=== PATIENT | female | born 1980 | race Caucasian/White ===

== ENCOUNTER 2018-09-14 05:57 | Day surgery (SDC) | payer SELFPAY ==
[2018-09-09 14:08] VITALS: BP 102/70; PULSE 59; RESP 16; TEMP 36.6; O2SAT 98; BMI 26.2
[2018-09-09 16:43] LABS: Hematocrit 35.7 % (37-47); Hemoglobin 11.4 g/dl (12.0-15.0); Mean Corp Hgb Conc 31.9 g/gl (32-36); Mean Corpuscular Hgb 30.2 pg (27.0-32.0); Mean Corpuscular Volume 94.7 fL (81-99); Mean Platelet Vol. 10.5 fl (6.2-12.0); Platelet Count 262 K/mm3 (150-450); RBC Distribution Width CV 14.1 % (11.6-14.6); RBC Distribution Width SD 48.4 fl (35.1-43.9); Red Blood Count 3.77 M/mm3 (4.2-5.4); White Blood Count 5.9 K/mm3 (4.4-11.0)
[2018-09-09 17:01] LABS: International Normalized Ratio 1.1; Prothrombin Time (Protime)PT. 14.5 SECONDS (11.7-14.9)
[2018-09-09 17:02] LABS: Partial Thromboplast Time 37.6 Seconds (24.1-36.2)
[2018-09-09 17:11] LABS: Scan Indicated on CBC? Y/N NO
[2018-09-09 17:13] LABS: Pregnancy, Serum, hCG Quali. NEGATIVE Negative (0-9 Nonpreg)
--- NOTE | 2018-09-13 14:31 | HP.PCM_ITS ---
History and Physical Date of Admission: 09/14/18 Surgical History and Physical Leydi Dunlap, a 38 year old female 8 1 2 0 9, presents for L/S BTO with Filsche clips and distal bilateral salpingectomy on September 14, 2018 at 7:30. -- Desires Permanent Sterilization -- Leydi presents here today as referral from Dr. Muhammad for a Tubal. 38 y.o. G 11 P 9 non-smoker with no menses since on 05-28-18 with a sudden abruption at 36 wks gestation and delivered a healthy female at that time. Currently breast feeding and using nothing for control. She has considered this form of control for quite some time. MEDICATIONS HISTORY: ALLERGIES: No Known Allergies Infections - Chicken pox Illnesses - no serious past illnesses Accidents - None Hospitalizations - see surgery Review of Systems: GENERAL - Denies fever, or chills SKIN - Denies skin changes EYES - Denies visual changes EARS - Denies difficulty hearing NOSE - Denies nasal congestion or bleeding MOUTH - Denies sore throat or difficulty swallowing NECK - Denies pain or swelling RESPIRATORY - Denies shortness of breath or wheezing CARDIOVASCULAR - Denies palpitations or chest pain GASTROINTESTINAL - Denies nausea, vomiting, diarrhea, constipation GENITOURINARY - Denies dysuria, frequency of urination, incontinence of urine MUSCULOSKELETAL - Denies joint or muscle pain NEUROLOGICAL - Denies localized numbness or weakness PSYCHIATRIC - Denies depression or anxiety ENDOCRINE - Denies heat or cold intolerance, weight loss or gain HEMATO-IMMUNOLOGIC - Denies excesive bleeding with cuts SOCIAL HISTORY: Alcohol Use - None Smoking - Never Diet - no special diet Lifestyle - moderate stress lifestyle and Exercise - active work 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 T and A, 1990 ; - PHYSICAL EXAM BP- 110/70 Sitting, Right arm, regular cuff Weight- 143.31876 lbs Height- 62 inch BMI:26.21 CONSTITUTIONAL - NAD, well nourished, and well developed SKIN - No rash, lesions, or ulcers HEENT - Normocephalic, PERRLA, EOMI NECK - No nodes, no nuchal rigidity and thyroid normal size and texture LYMPH NODES - Palpation of lymph nodes in neck and groins within normal limits LUNGS - CTA x2 without wheezes, crackles or rales CARDIAC - Regular rate and rhythm without rubs, murmurs, or gallops ABDOMEN - Without hepatosplenomegaly, distention, masses, rebound, or guarding; normal bowel sounds; no hernias EXTREMITIES - No edema or calf tenderness NEUROLOGICAL - Cranial nerves II-XII grossly intact PSYCHIATRIC - A and O to time, place, person, mood and affect ASSESSMENT/PLAN: 1. Sterilization Status Desires permanent sterilization. Discussed LST with filsche clips and distal salpingectomy vs ESSURE vs Mirena IUD and she desires the tubal in the OR. Discussed RBAs and all questions answered.
[2018-09-14 06:21] VITALS: BP 109/68; PULSE 56; RESP 16; TEMP 36.5; O2SAT 100; BMI 26.2
[2018-09-14 06:26] LABS: Internal QC Validated? YES +Cl - CLEAR BKGD; Pregnancy, Urine Negative Negative
--- NOTE | 2018-09-14 07:30 | FALS_PTH ---
PATIENT: TERENCE SANCHEZ [place] [facility] [place][id number] AGE/SX: 38/F ROOM: RE09/14/[address]: Dr. Umberto Brito MD : 1980 BED: DIS: 09/14/2018 SPEC #: [id number] RECD: 09/14/18 09:39 STATUS: JEAN CLAUDE PARKTamiko #: [id number] TRESSA: 09/14/18 07:[address]: Umberto Brito DEPT: SURGICAL PATHOLOGY RECD BY: Denise Santos ENTERED: 09/14/18 11:17 SP TYPE: FALL TUBES OTHR DR: Dr. Umberto Marroquin MD Tissues: Fallopian tube Procedures: Surgery Specimen Level II HEADER OPERATION: Laparoscopic, bilateral tubal occlusion, Filshie clips/partial PRE-OP DIAGNOSIS: Desires permanent sterilization TISSUE SUBMITTED: Bilateral tubes MICROSCOPIC DIAGNOSIS Bilateral fallopian tubes: Bilateral fallopian tubes including fimbrial ends, no pathologic diagnosis. SJ:dami 09/15/18 MICROSCOPIC DESCRIPTION Slides are reviewed. GROSS DESCRIPTION Received is one container labeled with the patient's name and designated bilateral fallopian tubes. The specimen consists of two fallopian tubes with an average length of 7.5 cm and has an average diameter of 0.6 cm. Both fallopian tubes have normal fimbriated ends. The fimbriated ends have normal villous appearance. No mass lesions are identified. Sleeve Turner sections from both fallopian tubes are submitted in two cassettes. / AM:dami 09/14/18 TC:4 CPT: 61807 x2
--- NOTE | 2018-09-14 07:37 | PCM.OPRPT ---
Report of Operation Date of Procedure: 09/14/18 Pre-Operative Diagnosis: Desires Permanent Sterilization Post-Operative Diagnosis: Desires Permanent Sterilization Surgery/Procedure Performed:: Laparoscopic Bilateral Tubal Occlusion with Filshie Clips and Bilateral Distal Salpingectomy Description of Surgical Findings:: 8 cm uterus with normal-appearing fallopian tubes and ovaries. Type of Anesthesia:: General - endotracheal tube Anesthesiologist: Chapis Anderson Specimen's removed: Bilateral distal fallopian tubes Estimated Blood Loss (mL): Minimal Fluids Replaced: Crystalloid Description of Procedure: Surgeon: Umberto Brito MD, FACOG Indications: This is a 38 year old patient who has the above diagnosis. She has considered sterilization for quite some time. She is aware of the permanent nature of the procedure, the failure rate of 1-2%, and the availability of other nonpermanent control options. All questions were answered and we consider the patient well-informed. Procedure: The patient was taken to the operating room where after induction of general anesthesia, she was placed in the dorsolithotomy position and prepped and draped in the usual sterile fashion. The bladder was drained of approximately 50 cc of clear yellow urine with a catheter. Anterior cervix was grasped with the tenaculum. Conn cannula was placed and attention was turned toward the laparoscopic portion of the procedure. Approximately 15 cc of half percent ropivacaine was injected subumbilically suprapubically and midway between. A 5 mm bladeless trocar was placed subumbilically and intraperitoneal placement confirmed. After CO2 insufflation was complete, a 5 mm bladeless trocar was introduced suprapubically. The above findings were noted. An mini alligator grasper was then placed midway between these 2 ports for tubal manipulation. Each fallopian tube was identified to its fimbriated end and an Enseal device was used to divide the mesosalpinx leaving approximately 1-2 cm stump of fallopian tube on each side. Filshie clips were placed on the stump of each fallopian tube. The peritoneal cavity and upper abdomen were examined and noted to be normal. Photographs were taken. Laparoscopic instruments with as much CO2 gas as possible were removed and incisions were closed with interrupted 4-0 Monocryl suture. Steri-Strips placed across the incision. Patient tolerated procedure well was taken to recovery room in satisfactory condition sponge instrument and needle counts were all reportedly correct. Cefotan 2 g IV was given prior to beginning the operative procedure. Estimated blood loss for the case was minimal. Specimen to pathology was bilateral distal fallopian tubes. Grafts/Implants Used: None - Complications None - Admit VTE Documentation VTE Present on Admission: Yes VTE Mechan Device Prophylaxis: SCD's VTE Pharm Prophylaxis ordered?: No Reason prophylaxis not ordered:: Treatment Not Indicated
[2018-09-14] MEDS: Ropivacaine 0.5% 30 ML Vial (07:50)
--- NOTE | 2018-09-14 08:24 | DCINST_ITS ---
Discharge Diet: No Restrictions - Increase fluid intake for the next 48 hours. Discharge Activity: Return to Normal Activity, May not drive while taking narcotic pain medications., May Shower, May Take a Tub Bath Additional Activity Instructions:: Ambulate often the next week after surgery. Nothing in the vagina for 5 days. Call your doctor if your incision/area has: Continuous Slow Oozing, Sudden Increased Bleeding, Increased Pain/ Swelling, Increased Redness, Foul Smelling Discharge Call your doctor if you observe: Fever of 101 or Higher, Inability to urinate, Inability to have a bowel movement, Using more than one pad per hour Allergies/Adverse Reactions: Allergies No Known Allergies Allergy (Verified 09/09/18 14:07) Medications to take at Discharge Hydrocodone Bitart/Apap 5-325 [[place] 5MG-325MG] 1 tab PO Q6H PRN PRN 7 Days #10 tab 09/14/18 The following prescriptions were given: Hydrocodone Bitart/Apap 5-325 [[place] 5MG-325MG] 1 tab PO Q6H PRN PRN 7 Days #10 tab PRN Reason: Severe Pain (-07/08) Primary Care Physician: Umberto Marroquin [Primary Care Provider] - Test Results: Test results from this visit will be discussed in further detail at your follow- up appointment, if applicable. Please Follow Up With: Umberto Brito MD - [phone] When: 2-3 weeks
[2018-09-14 08:27] VITALS: BP 107/62; BP 109/68; PULSE 51; RESP 18; TEMP 36.3; O2SAT 98
[2018-09-14 08:33] VITALS: BP 109/68; BP 116/67; PULSE 51; RESP 16; O2SAT 97
[2018-09-14 08:45] VITALS: BP 109/68; BP 117/67; PULSE 48; RESP 16; O2SAT 100
[2018-09-14 08:55] VITALS: BP 108/69; BP 109/68; PULSE 48; RESP 16; TEMP 36.3; O2SAT 100
[2018-09-14] MEDS: HYDROcodone Bitartrate/Apap 5/325 Tablet PO (09:38)
[2018-09-14 10:30] VITALS: BP 105/64; BP 109/68; PULSE 58; RESP 16; TEMP 36.9; O2SAT 99
--- OUTSIDE RECORDS SUMMARY | 2018-12-16 16:18 | XMS RPT_ITS ---
:1980 Author Organization [facility] Care Team Providers Name Role Phone MICHAELLE MCMAHON CNM Admitting Unavailable MICHAELLE MCMAHON CNM Attending Unavailable MICHAELLE MCMAHON CNM Primary Care Unavailable Umberto Brito Attending Unavailable Umberto Brito Referring Unavailable Umberto Marroquin Primary Care Unavailable PROBLEMS PROBLEMS DATE TYPE CONDITION / CODE ATTENDING STATUS SOURCE 09/14/2018 Unknown G89.18 - Other acute Umberto Brito Active [place] postprocedural pain [facility] / G89.18(ICD-10) Hospital Repository PROCEDURES PROCEDURES No Procedure Records FoundRESULTS RESULTS DISCHARGE INSTRUCTION Observed: 09/14/2018 Status: F Source: [place] 8:25 AM [facility] REPOSITORY [facility] Medical Records Department [address] [place] [address] Instructions for Home/Discharge Instructions 09/14/18 0824 MR#: [id number] Acct: [id number] Name: LEYDI DUNLAP Rep #: [id number] : 1980 38 From: Umberto Brito MD PCP: Umberto Marroquin MD Status: REG [facility] [place] Discharge Diet: No Restrictions - Increase fluid intake for the next 48 hours. Discharge Activity: Return to Normal Activity, May not drive while taking narcotic pain medications., May Shower, May Take a Tub Bath Additional Activity Instructions:: Ambulate often the next week after surgery. Nothing in the vagina for 5 days. Call your doctor if your incision/area has: Continuous Slow Oozing, Sudden Increased Bleeding, Increased Pain/ Swelling, Increased Redness, Foul Smelling Discharge Call your doctor if you observe: Fever of 101 or Higher, Inability to urinate, Inability to have a bowel movement, Using more than one pad per hour Allergies/Adverse Reactions: Allergies No Known Allergies Allergy (Verified 09/09/18 14:07) Medications to take at Discharge Hydrocodone Bitart/Apap 5-325 [[place] 5MG-325MG] 1 tab PO Q6H PRN PRN 7 Days #10 tab 09/14/18 The following prescriptions were given: Hydrocodone Bitart/Apap 5-325 [[place] 5MG-325MG] 1 tab PO Q6H PRN PRN 7 Days #10 tab PRN Reason: Severe Pain (-07/08) Primary Care Physician: Umberto Marroquin [Primary Care Provider] - Test Results: Test results from this visit will be discussed in further detail at your follow-up appointment, if applicable. Please Follow Up With: Umberto Brito MD - [phone] When: 2-3 weeks 09/14/18 0824 <Electronically signed by Umberto Brito MD> Date Umberto Brito MD CC: Umberto Marroquin MD OPERATIVE REPORT Observed: 09/14/2018 Status: F Source: [place] 8:[address] [facility] Medical Records Department [address] [place] [address] Operative Report 09/14/18 0737 MR#: [id number] Acct: [id number] Name: LEYDI DUNLAP Rep #: [id number] : 1980 38 From: Umberto Brito MD PCP: Umberto Marroquin MD Status: [facility] Y Location: [place] [address] Report of Operation Date of Procedure: 09/14/18 Pre-Operative Diagnosis: Desires Permanent Sterilization Post-Operative Diagnosis: Desires Permanent Sterilization Surgery/Procedure Performed:: Laparoscopic Bilateral Tubal Occlusion with Filshie Clips and Bilateral Distal Salpingectomy Description of Surgical Findings:: 8 cm uterus with normal-appearing fallopian tubes and ovaries. Type of Anesthesia:: General - endotracheal tube Anesthesiologist: Chapis Anderson Specimen's removed: Bilateral distal fallopian tubes Estimated Blood Loss (mL): Minimal Fluids Replaced: Crystalloid Description of Procedure: Surgeon: Umberto Brito MD, FACOG Indications: This is a 38 year old patient who has the above diagnosis. She has considered sterilization for quite some time. She is aware of the permanent nature of the procedure, the failure rate of 1-2%, and the availability of other nonpermanent control options. All questions were answered and we consider the patient well-informed. Procedure: The patient was taken to the operating room where after induction of general anesthesia, she was placed in the dorsolithotomy position and prepped and draped in the usual sterile fashion. The bladder was drained of approximately 50 cc of clear yellow urine with a catheter. Anterior cervix was grasped with the tenaculum. Conn cannula was placed and attention was turned toward the laparoscopic portion of the procedure. Approximately 15 cc of half percent ropivacaine was injected subumbilically suprapubically and midway between. A 5 mm bladeless trocar was placed subumbilically and intraperitoneal placement confirmed. After CO2 insufflation was complete, a 5 mm bladeless trocar was introduced suprapubically. The above findings were noted. An mini alligator grasper was then placed midway between these 2 ports for tubal manipulation. Each fallopian tube was identified to its fimbriated end and an Enseal device was used to divide the mesosalpinx leaving approximately 1-2 cm stump of fallopian tube on each side. Filshie clips were placed on the stump of each fallopian tube. The peritoneal cavity and upper abdomen were examined and noted to be normal. Photographs were taken. Laparoscopic instruments with as much CO2 gas as possible were removed and incisions were closed with interrupted 4-0 Monocryl suture. Steri-Strips placed across the incision. Patient tolerated procedure well was taken to recovery room in satisfactory condition sponge instrument and needle counts were all reportedly correct. Cefotan 2 g IV was given prior to beginning the operative procedure. Estimated blood loss for the case was minimal. Specimen to pathology was bilateral distal fallopian tubes. Grafts/Implants Used: None - Complications None - Admit VTE Documentation VTE Present on Admission: Yes VTE Mechan Device Prophylaxis: SCD's VTE Pharm Prophylaxis ordered?: No Reason prophylaxis not ordered:: Treatment Not Indicated 09/14/18 0824 <Electronically signed by Umberto Brito MD> Date Umberto Brito MD CC: Umberto Marroquin MD; Umberto Brito MD Signed FALLOPIAN TUBES/STERILIZATION Observed: 09/14/2018 Status: F Source: [place] 7:30 AM [facility] REPOSITORY Patient: LEYDI DUNLAP : 1980 (38/F) Acct Num: [id number] Phys: Daryl ANDERSON,Umberto Unit Num: [id number] Loc: [facility] [place] Specimen: [id number] Received: 09/14/18938 Spec Type: FALL TUBES TISSUES 1 TISSUES: Fallopian tube GROSS DESCRIPTION Received is one container labeled with the patient's name and designated bilateral fallopian tubes. The specimen consists of two fallopian tubes with an average length of 7.5 cm and has an average diameter of 0.6 cm. Both fallopian tubes have normal fimbriated ends. The fimbriated ends have normal villous appearance. No mass lesions are identified. Claim Adjuster sections from both fallopian tubes are submitted in two cassettes. / AM:dami 09/14/18 TC:4 CPT: 99170 x2 HEADER OPERATION: Laparoscopic, bilateral tubal occlusion, Filshie clips/partial PRE-OP DIAGNOSIS: Desires permanent sterilization TISSUE SUBMITTED: Bilateral tubes MICROSCOPIC DESCRIPTION Slides are reviewed. MICROSCOPIC DIAGNOSIS Bilateral fallopian tubes: Bilateral fallopian tubes including fimbrial ends, no pathologic diagnosis. SJ:dami 09/15/18 Signed Boy Lopez MD 09/15/18 <signature on file> Performed By: #### PFALS #### [facility] [address] [place], [address] ,URINE Collected: 09/14/2018 Status: F Source: [place] 6:11 AM [facility] REPOSITORY TYPE CODE TESTS RESULT OUT OF REFERENCE UNITS RANGE LAB L400.8000 Negative Normal HCGUQUAL Negative Result Comment: Very dilute urine specimens, as indicated by a low specific gravity, may not contain telephone services sales representative levels of hCG. If is still suspected, a first morning urine specimen should be collected 48 hours later and tested. Performed By: #### L400.7600 #### [facility] [address] [place], [address] HISTORY AND PHYSICAL Observed: 09/13/2018 Status: F Source: [place] EXAM 2:31 PM [facility] REPOSITORY [facility] Medical Records Department [address] [place] [address] History and Physical 09/13/18 1430 MR#: [id number] Acct: [id number] Name: LEYDI DUNLAP Rep #: [id number] : 1980 38 From: Umberto Brito MD PCP: Umberto Marroquin MD Status: PRE [facility] [place] Y Location: [facility] [place] History and Physical Date of Admission: 09/14/18 Surgical History and Physical Leydi Dunlap, a 38 year old female 8 1 2 0 9, presents for L/S BTO with Filsche clips and distal bilateral salpingectomy on September 14, 2018 at 7:30. -- Desires Permanent Sterilization -- Leydi presents here today as referral from Dr. Muhammad for a Tubal. 38 y.o. G 11 P 9 non-smoker with no menses since on 05-28-18 with a sudden abruption at 36 wks gestation and delivered a healthy female at that time. Currently breast feeding and using nothing for control. She has considered this form of control for quite some time. MEDICATIONS HISTORY: ALLERGIES: No Known Allergies Infections - Chicken pox Illnesses - no serious past illnesses Accidents - None Hospitalizations - see surgery Review of Systems: GENERAL - Denies fever, or chills SKIN - Denies skin changes EYES - Denies visual changes EARS - Denies difficulty hearing NOSE - Denies nasal congestion or bleeding MOUTH - Denies sore throat or difficulty swallowing NECK - Denies pain or swelling RESPIRATORY - Denies shortness of breath or wheezing CARDIOVASCULAR - Denies palpitations or chest pain GASTROINTESTINAL - Denies nausea, vomiting, diarrhea, constipation GENITOURINARY - Denies dysuria, frequency of urination, incontinence of urine MUSCULOSKELETAL - Denies joint or muscle pain NEUROLOGICAL - Denies localized numbness or weakness PSYCHIATRIC - Denies depression or anxiety ENDOCRINE - Denies heat or cold intolerance, weight loss or gain HEMATO-IMMUNOLOGIC - Denies excesive bleeding with cuts SOCIAL HISTORY: Alcohol Use - None Smoking - Never Diet - no special diet Lifestyle - moderate stress lifestyle and Exercise - active work 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 T and A, 1990 ; - PHYSICAL EXAM BP- 110/70 Sitting, Right arm, regular cuff Weight- 143.51493 lbs Height- 62 inch BMI:26.21 CONSTITUTIONAL - NAD, well nourished, and well developed SKIN - No rash, lesions, or ulcers HEENT - Normocephalic, PERRLA, EOMI NECK - No nodes, no nuchal rigidity and thyroid normal size and texture LYMPH NODES - Palpation of lymph nodes in neck and groins within normal limits LUNGS - CTA x2 without wheezes, crackles or rales CARDIAC - Regular rate and rhythm without rubs, murmurs, or gallops ABDOMEN - Without hepatosplenomegaly, distention, masses, rebound, or guarding; normal bowel sounds; no hernias EXTREMITIES - No edema or calf tenderness NEUROLOGICAL - Cranial nerves II-XII grossly intact PSYCHIATRIC - A and O to time, place, person, mood and affect ASSESSMENT/PLAN: 1. Sterilization Status Desires permanent sterilization. Discussed LST with filsche clips and distal salpingectomy vs ESSURE vs Mirena IUD and she desires the tubal in the OR. Discussed RBAs and all questions answered. 09/13/18 1431 <Electronically signed by Umberto Brito MD> Date Umberto Brito MD Cosigner Signature: Date (if applicable) CC: Umberto Marroquin MD; Umberto Brito MD Signed ANTIGEN E GAMMACLONE Collected: 09/09/2018 Status: F Source: [place] 2:30 PM [facility] REPOSITORY TYPE CODE TESTS RESULT OUT OF REFERENCE UNITS RANGE LAB B102.5450 E ANTIGEN ID ANTIGEN: NEGATIVE Performed By: #### B102.1200 #### [facility] [address] [place], [place], [id number] CBC-COMPLETE BLOOD CNT Collected: 09/09/2018 Status: F Source: [place] NO DIFF 2:26 PM [facility] REPOSITORY TYPE CODE TESTS RESULT OUT OF RANGE REFERENCE UNITS LAB L100.1000 4.4-11.0 K/mm3 Normal WBC 5.9 LAB L100.1200 4.2-5.4 M/mm3 Low RBC 3.77 LAB L100.1300 12.0-15.0 g/dl Low HGB 11.4 LAB L100.1400 37-47 % Low HCT 35.7 LAB L100.1500 81-99 fL Normal MCV 94.7 LAB L100.1600 27.0-32.0 pg Normal MCH 30.2 LAB L100.1700 32-36 g/gl Low MCHC 31.9 LAB L100.1810 11.6-14.6 % Normal RDW CV 14.1 LAB L100.1820 35.1-43.9 fl High RDW SD 48.4 LAB L100.1900 150-450 K/mm3 Normal PLT 262 LAB L100.2000 6.2-12.0 fl Normal MPV 10.5 Performed By: #### L100.0500 #### [facility] [address] [place], [place], [id number] PROTHROMBIN TIME W/INR Collected: 09/09/2018 Status: F Source: [place] 2:26 PM [facility] REPOSITORY TYPE CODE TESTS RESULT OUT OF RANGE REFERENCE UNITS LAB L300.4150 11.7-14.9 SECONDS Normal PROTIME 14.5 LAB L300.4200 Normal INR 1.1 Performed By: #### L300.3900, L300.4310 #### [facility] [address] [place], [address] PARTIAL THROMBOPLAST Collected: 09/09/2018 Status: F Source: [place] TIME 2:26 PM [facility] REPOSITORY TYPE CODE TESTS RESULT OUT OF REFERENCE UNITS RANGE LAB L300.4310 24.1-36.2 Seconds High PTT 37.6 Performed By: #### L300.3900, L300.4310 #### [facility] [address] [place], [address] ,SERUM,HCG QUALI. Collected: Status: C Source: [place] 09/09/2018 2:26 PM [facility] REPOSITORY TYPE CODE TESTS RESULT OUT OF REFERENCE UNITS RANGE LAB L700.6700 =>Qualitative mIU/mL Normal HCG Qual < 1 triggr LAB L700.7000 0-9 Nonpreg Negative Normal HCGSQUAL NEGATIVE Performed By: #### L700.6800 #### [facility] [address] [place], [address] TYPE AND SCREEN Collected: 09/09/2018 Status: F Source: [place] 2:26 PM [facility] REPOSITORY Order Comment: Surgery Date: 09/14/18 Hx of Preganancy in last 3 Months No Ever experience any problems with transfusion(s)? N Hx of Transfusion in last 3 Months N Reason for Type AND Screen/Red Cells: SURGERY SURGICAL PROCEDURE: 79022 TYPE CODE TESTS RESULT OUT OF RANGE REFERENCE UNITS LAB B10.0800 A Normal BLOOD TYPE GEL POSITIVE LAB B100.4000 High Antibody POSITIVE Screen Performed By: #### B101.7475 #### [facility] [address] [place], [address] ANTIBODY PANEL ID Collected: 09/09/2018 Status: F Source: [place] 2:26 PM [facility] REPOSITORY Order Comment: Surgery Date: 09/14/18 Hx of Preganancy in last 3 Months No Ever experience any problems with transfusion(s)? N Hx of Transfusion in last 3 Months N Reason for Type AND Screen/Red Cells: SURGERY SURGICAL PROCEDURE: 97505 TYPE CODE TESTS RESULT OUT OF REFERENCE UNITS RANGE LAB B101.1999 ANTIBODY PANEL ANTI-E Performed By: #### B101.1999 #### [facility] [address] [place], [address] ANTIBODY PANEL ID Collected: 09/09/2018 Status: F Source: [place] 2:26 PM [facility] REPOSITORY Order Comment: Surgery Date: 09/14/18 Hx of Preganancy in last 3 Months No Ever experience any problems with transfusion(s)? N Hx of Transfusion in last 3 Months N CMV NEG?* N Give When? Type AND Hold Irradiated? N Leukodepleted? Y Reason for Type AND Screen/Red Cells: SURGERY Surgery Date: 09/14/18 Time: 0800 SURGICAL PROCEDURE: 46366 Type of Surgery: LAPAROSCOPY TYPE CODE TESTS RESULT OUT OF REFERENCE UNITS RANGE LAB B101.1999 ANTIBODY PANEL ANTI-E Performed By: #### B101.1999, B101.7450 #### [facility] [address] [place], [address] TYPE AND SCREEN Collected: 09/09/2018 Status: F Source: [place] 2:26 PM [facility] REPOSITORY Order Comment: Surgery Date: 09/14/18 Hx of Preganancy in last 3 Months No Ever experience any problems with transfusion(s)? N Hx of Transfusion in last 3 Months N CMV NEG?* N Give When? Type AND Hold Irradiated? N Leukodepleted? Y Reason for Type AND Screen/Red Cells: SURGERY Surgery Date: 09/14/18 Time: 0800 SURGICAL PROCEDURE: 04003 Type of Surgery: LAPAROSCOPY TYPE CODE TESTS RESULT OUT OF RANGE REFERENCE UNITS LAB B10.0800 A Normal BLOOD TYPE GEL POSITIVE LAB B100.4000 High Antibody POSITIVE Screen Performed By: #### B101.1999, B101.7450 #### [facility] [address] [place], [address] CBC Collected: 05/29/2018 Status: F Source: [facility] [place] 6:11 AM [facility] REPOSITORY TYPE CODE TESTS RESULT OUT OF RANGE REFERENCE UNITS LAB CBC(LOINC) CBC Result Comment: CBC-COMPLETE BLOOD COUNT LAB WBC(LOINC) 4.5 - 10.8 x 10EE3/UL WBC 8.9 LAB RBC(LOINC) 4.10 - x 10EE6/UL 5.30 RBC Low 3.78 LAB HEMOGLOBIN(LOINC 12.0 - g/dl ) 16.0 Low HEMOGLOBIN 11.2 LAB HEMATOCRIT(LOINC 34.0 - % ) 46.0 Low HEMATOCRIT 32.4 LAB MCV(LOINC) 80 - 99 fl MCV 86 LAB MCH(LOINC) 27 - 33 pg MCH 30 LAB MCHC(LOINC) 32 - 36 X10 3 MCHC 35 LAB RDW/CV(LOINC) 12.0 - % 15.6 RDW/CV High 17.9 LAB PLATELET(LOINC) 150 - 450 x10EE3/UL PLATELET Low 124 LAB MPV(LOINC) 6.6 - 10.5 fl MPV 9.9 Result Comment: AUTOMATED DIFFERENTIAL LAB NEUT %(LOINC) 46.0 - 76.0 % NEUT % 65.1 LAB LYMPH %(LOINC) 20.0 - 45.0 % LYMPH % 22.2 LAB MONOS %(LOINC) 0.0 - 10.0 % MONOS % High 10.8 LAB EO %(LOINC) 0.0 - 7.0 % EO % 1.0 LAB BASO %(LOINC) 0.0 - 2.0 % BASO % 0.9 LAB Lymph #(LOINC) 0.80 - 2.80 x10EE3/U L Lymph # 2.00 LAB Neut #(LOINC) 1.50 - 7.10 x10EE3/U L Neut # 5.80 LAB [place] #(LOINC) 0.20 - 1.00 x10EE3/U L [place] # 1.00 LAB EO #(LOINC) 0.00 - 0.50 x10EE3/U L EO # 0.10 LAB Baso #(LOINC) 0.00 - 0.10 x10EE3/U L Baso # 0.10 LAB MANUAL DIFF(LOINC) MANUAL DIFF N/A LAB MORPHOLOGY(LOINC ) MORPHOLOGY N/A Result Comment: {CD] Performed By: #### [id number] #### [facility],[address] [place] [address] CBC Collected: 05/29/2018 Status: F Source: [place] [place] 12:47 AM [facility] REPOSITORY TYPE CODE TESTS RESULT OUT OF RANGE REFERENCE UNITS LAB CBC(LOINC) CBC Result Comment: CBC-COMPLETE BLOOD COUNT LAB WBC(LOINC) 4.5 - 10.8 x 10EE3/UL WBC 10.0 LAB RBC(LOINC) 4.10 - x 10EE6/UL 5.30 RBC Low 3.84 LAB HEMOGLOBIN(LOINC 12.0 - g/dl ) 16.0 Low HEMOGLOBIN 11.4 LAB HEMATOCRIT(LOINC 34.0 - % ) 46.0 Low HEMATOCRIT 32.9 LAB MCV(LOINC) 80 - 99 fl MCV 86 LAB MCH(LOINC) 27 - 33 pg MCH 30 LAB MCHC(LOINC) 32 - 36 X10 3 MCHC 35 LAB RDW/CV(LOINC) 12.0 - % 15.6 RDW/CV High 17.3 LAB PLATELET(LOINC) 150 - 450 x10EE3/UL PLATELET Low 118 LAB MPV(LOINC) 6.6 - 10.5 fl MPV 10.2 Result Comment: AUTOMATED DIFFERENTIAL LAB NEUT %(LOINC) 46.0 - 76.0 % NEUT % 68.2 LAB LYMPH %(LOINC) 20.0 - 45.0 % LYMPH % 22.6 LAB MONOS %(LOINC) 0.0 - 10.0 % MONOS % 8.5 LAB EO %(LOINC) 0.0 - 7.0 % EO % 0.3 LAB BASO %(LOINC) 0.0 - 2.0 % BASO % 0.4 LAB Lymph #(LOINC) 0.80 - 2.80 x10EE3/U L Lymph # 2.30 LAB Neut #(LOINC) 1.50 - 7.10 x10EE3/U L Neut # 6.80 LAB [place] #(LOINC) 0.20 - 1.00 x10EE3/U L [place] # 0.90 LAB EO #(LOINC) 0.00 - 0.50 x10EE3/U L EO # 0.00 LAB Baso #(LOINC) 0.00 - 0.10 x10EE3/U L Baso # 0.00 LAB MANUAL DIFF(LOINC) MANUAL DIFF N/A LAB MORPHOLOGY(LOINC ) MORPHOLOGY N/A Result Comment: {CD] Performed By: #### [id number] #### [place] [id number] FIBRINOGEN Collected: 05/28/2018 Status: F Source: [facility] 5:55 PM [facility] REPOSITORY TYPE CODE TESTS RESULT OUT OF REFERENCE UNITS RANGE LAB FIBRINOGEN 200 - 661 mg/dl (LOINC) FIBRINOGEN 572 Result Comment: PLEASE NOTE - FIBRINOGEN AT [place] IS A CALCULATED VALUE. Values measured using the calculated fibrinogen method are biased 100mg/dl higher than values measured using the Clauss method. Performed By: #### [id number] #### [place] [address] PROTHROMBIN TIME AND Collected: 05/28/2018 Status: F Source: [facility] INR 5:55 PM [facility] REPOSITORY TYPE CODE TESTS RESULT OUT OF REFERENCE UNITS RANGE LAB PROTHROMBIN TIME AND INR(LOINC) PROTHROMBIN TIME AND INR Result Comment: PROTHROMBIN TIME AND INR LAB PT-COUMADIN(LOINC) sec PT-COUMADIN 11.4 LAB INR(LOINC) 0.8 - 1.2 INR 1.0 Result Comment: THE HEMOSIL THROMBOPLASTIN REAGENT USED IN THE PROTHROMBIN TIME TEST INTERACTS WITH THE DRUG CUBICIN (DAPTOMYCIN) AND WILL RESULT IN FALSELY ELEVATED PT / INR RESULTS INR INTERPRETATION INR INDICATION PREVENTION AND TREATMENT OF THROMBOEMBOLISM ASSOCIATED WITH: 2.0 - 3.0 ATRIAL FIBRILLATION, BIOPROSTHETIC HEART VALVES, PULMONARY EMBOLISM, VENOUS THROMBOSIS, SYSTEMIC EMBOLISM POST MYOCARDIAL INFARCTION 2.5 - 3.5 MECHANICAL HEART VALVES Performed By: #### [id number] #### [place] [address] APTT Collected: 05/28/2018 Status: F Source: [facility] 5:55 PM [facility] REPOSITORY TYPE CODE TESTS RESULT OUT OF RANGE REFERENCE UNITS LAB PTT(LOINC) 21.6 - 35.4 sec PTT 25.8 Performed By: #### [id number] #### [facility],[address] [place] [address] CBC Collected: 05/28/2018 Status: F [facility] PM [facility] REPOSITORY TYPE CODE TESTS RESULT OUT OF RANGE REFERENCE UNITS LAB CBC(LOINC) CBC Result Comment: CBC-COMPLETE BLOOD COUNT LAB WBC(LOINC) 4.5 - 10.8 x 10EE3/UL WBC High 13.3 LAB RBC(LOINC) 4.10 - x 10EE6/UL 5.30 RBC Low 3.56 LAB HEMOGLOBIN(LOINC 12.0 - g/dl ) 16.0 Low HEMOGLOBIN 10.4 LAB HEMATOCRIT(LOINC 34.0 - % ) 46.0 Low HEMATOCRIT 30.6 LAB MCV(LOINC) 80 - 99 fl MCV 86 LAB MCH(LOINC) 27 - 33 pg MCH 29 LAB MCHC(LOINC) 32 - 36 X10 3 MCHC 34 LAB RDW/CV(LOINC) 12.0 - % 15.6 RDW/CV High 17.5 LAB PLATELET(LOINC) 150 - 450 x10EE3/UL PLATELET 158 LAB MPV(LOINC) 6.6 - 10.5 fl MPV High 10.7 Result Comment: AUTOMATED DIFFERENTIAL LAB NEUT %(LOINC) 46.0 - 76.0 % NEUT % High 76.2 LAB LYMPH %(LOINC) 20.0 - 45.0 % Low LYMPH % 15.4 LAB MONOS %(LOINC) 0.0 - 10.0 % MONOS % 7.4 LAB EO %(LOINC) 0.0 - 7.0 % EO % 0.6 LAB BASO %(LOINC) 0.0 - 2.0 % BASO % 0.4 LAB Lymph #(LOINC) 0.80 - 2.80 x10EE3/U L Lymph # 2.00 LAB Neut #(LOINC) 1.50 - 7.10 x10EE3/U L Neut # High 10.10 LAB [place] #(LOINC) 0.20 - 1.00 x10EE3/U L [place] # 1.00 LAB EO #(LOINC) 0.00 - 0.50 x10EE3/U L EO # 0.10 LAB Baso #(LOINC) 0.00 - 0.10 x10EE3/U L Baso # 0.00 LAB MANUAL DIFF(LOINC) MANUAL DIFF N/A LAB MORPHOLOGY(LOINC ) MORPHOLOGY N/A Result Comment: {CD] Performed By: #### [id number] #### [facility],[address] [place] [address] BB TYPE & SCREEN Collected: 05/28/2018 Status: F Source: [facility] 3:33 PM [facility] REPOSITORY TYPE CODE TESTS RESULT OUT OF REFERENCE UNITS RANGE LAB BB TYPE & SCREEN(LOIN C) BB TYPE & SCREEN Result Comment: TYPE, Rh, AND SCREEN LAB ABO(LOINC) ABO A LAB Rh(LOINC) Rh POS LAB ANTIBODY SCR(LOINC) ANTIBODY negative SCR Performed By: #### [id number] #### [facility],[address] [place] [address] BB CROSSMATCH 1ST UNIT Collected: 05/28/2018 Status: F Source: [facility] 3:30 PM [facility] REPOSITORY TYPE CODE TESTS RESULT OUT OF REFERENCE UNITS RANGE LAB BB CROSSMATCH 1ST UNIT(LOINC) BB CROSSMATCH 1ST UNIT Result Comment: [id number] REQUEST FOR BLOOD OR BLOOD COMPONENT UNIT #_1 05/28/18.1805.WKK. LAB Component(LOINC) ___ Component [facility] LAB Pt's ABO/Rh(LOINC) Pt's ABO/Rh A POSITIVE LAB Donor's ABO/Rh(LOINC) Donor's ABO/Rh A POSITIVE LAB Donor's Unit No(LOINC) Donor's Unit No [id number] LAB N(LOINC) Unit Exp Date 06-13-18 LAB Compatibility(LOINC) Compatibility COMPATIBLE Result Comment: { Pt's BB ID # [id number] Transfusion comments I have confirmed the above required items at the time of unit issue: Issuing Tech ........................ Date/Time .................. PT ID VERIFIED AT BEDSIDE PRIOR TO BLOOD ADMINISTRATION PT ID VERIFIED AND DOCUMENTED BY TWO NURSES PT Name same on unit tag,BB ID Bracelet, and blood administration form Verify PT name by asking to state name(if poss.) Pt's MR Number on unit tag is the same as BB ID Bracelet and admin form Verify Pt's ABO Group/Rh from admin form, and unit tag Verify unit number from unit and blood administration form Informed consent obtained? I have checked the above listed items and there were no discrepancies #1 RN signature .................... Date/Time .................. #2 RN signature .................... Date/Time .................. RECORD OF PATIENT'S RESPONSE Date/Time Prior to transfusion ......... Start of transfusion ......... 15 minute check ......... Blood complete/DC ......... SITE: Central Vein Peripheral Vein Central Artery Peripheral Artery AMOUNT GIVEN (1/4, 1/2, 3/4 or full unit) WAS THERE A REACTION TO THE TRANSFUSION? Yes... No... If so, notify the physician and the lab immediately, and initiate a Blood Transfusion Reaction form. COMPLETE FORMS ENTIRELY. KEEP CARDBOARD COPY ATTACHED TO UNIT. PLACE WHITE COPY ON CHART. RETURN YELLOW COPY TO LAB ANN UPON COMPLETION OF TRANSFUSION. Performed By: #### [id number] #### [facility],[address] [place] [address] BB CROSSMATCH Collected: 05/28/2018 Status: F Source: [facility] ADDITIONAL UNIT 3:30 PM [facility] REPOSITORY TYPE CODE TESTS RESULT OUT OF REFERENCE UNITS RANGE LAB BB CROSSMATCH ADDITIONAL UNIT(LOINC) BB CROSSMATCH ADDITIONAL UNIT Result Comment: [id number] REQUEST FOR BLOOD OR BLOOD COMPONENT UNIT #_2 05/28/18.1826.WKK. LAB Component(LOINC) ___ Component [facility] LAB Pt's ABO/Rh(LOINC) Pt's ABO/Rh A POSITIVE LAB Donor's ABO/Rh(LOINC) Donor's ABO/Rh A POSITIVE LAB Donor's Unit No(LOINC) Donor's Unit No [id number] LAB N(LOINC) Unit Exp Date 07-04-18 LAB Compatibility(LOINC) Compatibility COMPATIBLE Result Comment: { Pt's BB ID # [id number] Transfusion comments I have confirmed the above required items at the time of unit issue: Issuing Tech ........................ Date/Time .................. PT ID VERIFIED AT BEDSIDE PRIOR TO BLOOD ADMINISTRATION PT ID VERIFIED AND DOCUMENTED BY TWO NURSES PT Name same on unit tag,BB ID Bracelet, and blood administration form Verify PT name by asking to state name(if poss.) Pt's MR Number on unit tag is the same as BB ID Bracelet and admin form Verify Pt's ABO Group/Rh from admin form, and unit tag Verify unit number from unit and blood administration form Informed consent obtained? I have checked the above listed items and there were no discrepancies #1 RN signature .................... Date/Time .................. #2 RN signature .................... Date/Time .................. RECORD OF PATIENT'S RESPONSE Date/Time Prior to transfusion ......... Start of transfusion ......... 15 minute check ......... Blood complete/DC ......... SITE: Central Vein Peripheral Vein Central Artery Peripheral Artery AMOUNT GIVEN (1/4, 1/2, 3/4 or full unit) WAS THERE A REACTION TO THE TRANSFUSION? Yes... No... If so, notify the physician and the lab immediately, and initiate a Blood Transfusion Reaction form. COMPLETE FORMS ENTIRELY. KEEP CARDBOARD COPY ATTACHED TO UNIT. PLACE WHITE COPY ON CHART. RETURN YELLOW COPY TO LAB ANN UPON COMPLETION OF TRANSFUSION. Performed By: #### [id number] #### [facility],[address] [place], [place] [address] FINAL SURGICAL Observed: 05/28/2018 Status: F Source: [facility] PATHOLOGY REPORT 2:38 PM [facility] REPOSITORY . Pathology Reports Accession: Collected Date/Time: Received Date/Time: Pathologist: [id number] 05/28/2018 14:38 EDT 05/29/2018 14:38 EDT DO ROCKY STEVENS Final Surgical Pathology Report DIAGNOSIS: MACERATED COMPLETELY AUTOLYZED PLACENTA. CLINICAL INFORMATION: HEMORRHAGE / PORTWINE AMNIOTIC FLUID / PRECIP DELIVER / DELIVERY SPECIMEN: A PLACENTA, THIRD - 36 WEEKS - VAGINAL DELIVERY GROSS DESCRIPTION: Received in a container labeled placenta with no definitive fixative is a completely macerated portion of apparent placenta weighing 519 grams and measuring 18 x 17 x 4 cm. Some membranes are noted, however no definite cord is seen. No viable tisuse is seen. Claim Adjuster sections submitted in two cassette(s). dictated by Aimee Stevens D.O. Dictated by ROCKY STEVENS DO MICROSCOPIC DESCRIPTION: Slides reviewed. Electronically Signed by Pathology Report verified by [facility] Electronically signed by ROCKY STEVENS DO Sign out Date: 06/03/2018 13:57 Performing Lab: [facility], [address] [place] [address] Performed By: #### SPFR #### [place] [address] ALLERGIES ALLERGIES DATE TYPE / CODE NAME / CODE REACTION SEVERITY SOURCE 09/09/2018 Drug No Known Unknown [place] Allergy/[id number](S Allergies/F0019 [facility] NOMED CT) [address]135(RXNORM) Hospital Repository Miscellaneous No Known Moderate [facility] Allergy/[id number](S Allergies (Severity [facility] NOMED CT) Modifier) Hospital (Qualifier Repository Value) ENCOUNTERS ENCOUNTERS ADMIT/DISCHARGE ACCOUNT ADMITTING ENCOUNTER LOCATION SOURCE NUMBER CLASS 09/14/2018/ [id number] Ambulatory [facility] [address] [facility] ing:[facility] Repository 05/28/2018/ [id number] [place], Inpatient [address] [place] [address] Encounter oom: [address] [facility] Repository PAYERS PAYERS ENCOUNTER GUARANTOR PAYER SUBSCRIBER SOURCE 09/14/2018 LEYDI Mackenzie Primary Insurance:[facility] LEYDI Mackenzie [place] [id number] [facility] [place], [place] [address]Eib: [id number] Repository Date:2018-08-13 () 09/14/2018 Secondary NOT GIVENUNK [place] Insurance:SELF PAY [facility]: Effective Repository Date:2018-08-13
== END 2018-09-14 10:37 | disposition home or self-care (01) ==
LOC: SDC 06:04 → AC 07:24
PROVIDERS: Anesthesiology; Family Provider Family Medicine; PCP Family Medicine; Referring Provider Obstetrics & Gynecology; Visit Provider Obstetrics & Gynecology
PROC: (CPT 58671; principal; 2018-09-14 07:15)
DX: Z30.2 Encounter for sterilization (principal); K21.9 Gastro-esophageal reflux disease without esophagitis
CPT/HCPCS: 00851; 58671; 36415; 81025; 84703; 85027; 85610; 85730; 86850; 86870; 86900; 86902; 86905; 86920; 86922; 88302; J7120; J2405